=== PATIENT | female | born 2005 | race Two or more races ===

== ENCOUNTER 2024-10-21 10:38 | Emergency (ER) | payer OTHER ==
[2024-10-21 10:44] VITALS: BP 109/71; PULSE 85; RESP 20; TEMP 97.8; BMI 24.7
[2024-10-21] MEDS: ACETAMINOPHEN 325 MG TABLET (FP) PO ONE (11:31)
[2024-10-21 12:09] LABS: THROAT:GRP A STREP NOT DETECTED (NOTDETECTED)
== END 2024-10-21 12:20 | disposition home or self-care (01) ==
LOC: JERFT 10:38
DX: O99.511 Diseases of the respiratory system complicating pregnancy, first trimester (principal); J02.9 Acute pharyngitis, unspecified; Z3A.01 Less than 8 weeks gestation of pregnancy
CPT/HCPCS: 0241U-QW; 87070; 87651; 99283-25